=== PATIENT | male | born 1930 | race African-American/Black ===

== ENCOUNTER 2018-06-03 10:36 | Emergency (ER) | payer MEDICARE, OTHER ==
[~2018-06-03] VITALS: Ht 177.8 cm; Wt 88.6 kg
[~2018-06-03 10:36] MED LIST: BP MEDICATION PO; CILO100T PO; CYAN100T PO; DOCU240C53 PO; DOXY100T PO; EZET10TA18 PO; FINA5TAB4 PO; LEVO25TA4 PO; MECL-76 PO; MIRTAZAPINE; MULT-108 PO; OMEP-110 PO; POTASSIUM; PRED20TA PO; QUET25TA PO; SIMV40TA3 PO; TAMS0.4C2 PO; TIMO1DRO2 OP; VYTORIN
[2018-06-03] MEDS ORDERED: SODIUM CHLORIDE FLUSH 10ML SYR IVF ONE (11:30)
[2018-06-03] MEDS ORDERED: ASPIRIN 81 MG TABLET CHEW PO ONE (11:30)
[2018-06-03 11:37] LABS: BASOPHILS # (AUTO) 0.03 x10^3/uL (0-0.1); BASOPHILS % (AUTO) 0 % (0-1); EOSINOPHILS # (AUTO) 0.06 x10^3/uL (0-0.4); EOSINOPHILS % (AUTO) 1 % (1-7); LYMPHOCYTES # (AUTO) 1.59 x10^3/uL (1-3.4); LYMPHOCYTES % (AUTO) 20 % (22-44); MD NO; MEAN CORPUSCULAR HGB CONC 33.3 g/dL (33.2-36.2); MEAN CORPUSCULAR VOLUME 96.2 fL (81-97); MEAN PLATELET VOLUME 7.9 fL (7.4-10.4); MONOCYTES # (AUTO) 0.83 x10^3/uL (0.2-0.8); MONOCYTES % (AUTO) 10 % (2-9); NEUTROPHILS # (AUTO) 5.56 x10^3/uL (1.8-6.8); NEUTROPHILS % (AUTO) 69 % (42-75); PLATELET COUNT 314 x10^3/uL (130-400); RED BLOOD COUNT 4.93 x10^6/uL (4.38-5.82); RED CELL DISTRIBUTION WIDTH 15.4 % (9.4-14.8)
[2018-06-03] MEDS ORDERED: ASPIRIN 81 MG TABLET CHEW ONE (11:37)
[2018-06-03 11:47] LABS: CHLORIDE 104 mmol/L (98-107)
[2018-06-03 11:52] LABS: ALBUMIN 3.9 g/dL (3.4-5.0); ANION GAP 9 mmol/L (5-15); CALCIUM 9.5 mg/dL (8.5-10.1); CREATININE 0.83 mg/dL (0.7-1.3)
[2018-06-03 11:53] LABS: TROPONIN I < 0.015 ng/mL (0.000-0.045)
[2018-06-03 13:52] VITALS: BP 137/89
== END 2018-06-03 13:54 | disposition home or self-care (01) ==
LOC: ED 12:18
DX: R42 Dizziness and giddiness (principal); I10 Essential (primary) hypertension; J44.9 Chronic obstructive pulmonary disease, unspecified; R51 Headache; Z86.718 Personal history of other venous thrombosis and embolism
CPT/HCPCS: 36415; 70450; 71045; 80048; 82040; 83735; 84484; 85025; 93005; 99284